=== PATIENT | female | born 1970 | race African-American/Black ===

== ENCOUNTER 2021-09-25 09:00 | Emergency (ER) | payer SELFPAY ==
[~2021-09-25] VITALS: Ht 162.6 cm; Wt 73.0 kg
[2021-09-25 09:21] VITALS: BP 170/90
== END 2021-09-25 18:55 | disposition left against medical advice (07) ==
LOC: ER 09:00
DX: R11.2 Nausea with vomiting, unspecified (principal); Z20.822 Contact with and (suspected) exposure to COVID-19
CPT/HCPCS: 99283; C9803; U0003; U0005